=== PATIENT | female | born 1950 | race Caucasian/White ===

== ENCOUNTER 2025-01-22 09:41 | Outpatient (CLI) | payer MEDICARE ==
[~2025-01-22 09:41] MED LIST: iohexol 350MG/ML 100ml bottle IV ONE
[2025-01-22 10:35] LABS: BASOPHILS # (AUTO) 0.1 X10'3 (0-0.2); BASOPHILS % (AUTO) 1.2 % (0-1); EOSINOPHILS % (AUTO) 0.9 % (0-6); HEMATOCRIT 36.3 % (35.0-45.0); HEMOGLOBIN 12.4 g/dl (12.0-16.0); LYMPHOCYTES # (AUTO) 1.7 X10'3 (1.1-4.8); LYMPHOCYTES % (AUTO) 33.4 % (21-51); MEAN CORPUSCULAR HEMOGLOBIN 29.1 PG (27.0-31.0); MEAN CORPUSCULAR HGB CONC 34.2 g/dL (33.0-36.5); MEAN PLATELET VOLUME 8.6 FL (7.4-10.4); MONOCYTES # (AUTO) 0.3 X10'3 (0-0.9); MONOCYTES % (AUTO) 6.7 % (2-12); NEUTROPHILS # (AUTO) 2.9 X10'3 (1.8-7.7); NEUTROPHILS % (AUTO) 57.8 % (42-75); PLATELET COUNT 181 X10'3 (140-440); RED BLOOD COUNT 4.27 X10'6 (4.20-5.60); RED CELL DISTRIBUTION WIDTH 14.8 % (11.5-14.5)
[2025-01-22 10:47] LABS: APTT 32 SECONDS (22-32); INR 1.2 INR; PROTHROMBIN TIME 12.4 SECONDS (9.0-12.0)
[2025-01-22 11:07] LABS: ALANINE AMINOTRANSFERASE 96 U/L (12-78); ALBUMIN/GLOBULIN RATIO 1.3 (1.1-1.5); ALKALINE PHOSPHATASE 68 IU/L (46-116); ANION GAP 8 (8-16); ASPARTATE AMINO TRANSFERASE 77 U/L (10-37); BILIRUBIN,TOTAL 1.3 MG/DL (0.1-1.0); BLOOD UREA NITROGEN 15 MG/DL (7-18); BUN/CREATININE RATIO 18.3 (10.0-20.0); CALCIUM 9.1 MG/DL (8.5-10.1); CHLORIDE 97 MMOL/L (99-107); CREATININE 0.82 MG/DL (0.40-0.90); GLUCOSE 97 MG/DL (70-104); PRO BRAIN NATRIURETIC PEPTIDE 913 PG/ML (0-125); SODIUM 134 MMOL/L (135-145); TOTAL CARBON DIOXIDE 29.2 MMOL/L (24-32); TOTAL PROTEIN 7.2 G/DL (6.4-8.2); eGFR 68 ML/MIN
--- NOTE | 2025-01-22 12:18 | VASCULAR REPORT ---
PROCEDURE: [facility] 01/22/2025 11:09 AM INDICATION: Preoperative evaluation for TAVR. COMPARISON: None TECHNIQUE: Real-time grayscale and color Doppler images of the neck arteries were obtained with spect ral analysis performed. FINDINGS: RIGHT: No significant atherosclerotic plaque identified in the carotid. Normal spectral waveforms are seen. ICA peak systolic velocity: 81 cm/s ICA end-diastolic velocity: 31 cm/s ICA/CCA ratios: 1.37 LEFT: Mild calcified plaque formation noted at the bulb. Normal spectral waveforms are seen. ICA peak systolic velocity: 72 cm/s ICA end-diastolic velocity: 29 cm/s ICA/CCA ratios: 1.13 VERTEBRAL ARTERIES: Normal antegrade flow is seen bilaterally. Normal spectral waveforms. IMPRESSION: 1. No hemodynamically significant carotid artery stenosis identified bilaterally. Reference: Radiology 2003; [id number] Normal ICA PSV is <125 cm/sec and no plaque or intimal thickening is visible sonographically addition al criteria include ICA/CCA PSV ratio <2.0 and ICA EDV <40 cm/sec <50% ICA stenosis ICA PSV is <125 cm/sec and plaque or intimal thickening is visible sonographically additional criteria include ICA/CCA PSV ratio <2.0 and ICA EDV <40 cm/sec 50-69% ICA stenosis ICA PSV is 125-230 cm/sec and plaque is visible sonographically additional criter ia include ICA/CCA PSV ratio of 2.0-4.0 and ICA EDV of 40-100 cm/sec 70% ICA stenosis but less than near occlusion ICA PSV is >230 cm/sec and visible plaque and luminal narrowing are seen at dolan-scale and color Doppler ultrasound (the higher the Doppler parameters lie above the threshold of 230 cm/sec, the greater the likelihood of severe disease) additional criteria include ICA/CCA PSV ratio >4 and ICA EDV >100 cm/sec
--- NOTE | 2025-01-22 12:19 | RADIOLOGY REPORT ---
DI CHEST,TWO VIEWS CLINICAL HISTORY: TAVR SOB COMPARISON: None TECHNIQUE: Frontal and lateral view of the chest was obtained FINDINGS: Lines and Tubes: None Lungs: No focal consolidation. Pleura: No effusion. No pneumothorax. Cardiomediastinal contours: Unremarkable Bones: No acute osseous abnormality. IMPRESSION: No acute cardiopulmonary disease.
--- NOTE | 2025-01-23 11:14 | RADIOLOGY REPORT ---
Procedure: CT CTA TAVR Reason for study/Clinical History: Chest pain, evaluate for dissection. Comparison Study: None Exam Date: 01/22/2025 11:50 AM TECHNIQUE: Multiplanar reformatted images were generated from volumetric data acquired on a multidetector CT [facility]. Cardiac gating was utilized. Arterial phase images were obtained through the chest, abdomen and pelvis following intravenous administration of contrast material. 100 mL visipaque [address] dose reduction techniques were utilized. 3-D reconstructions were performed on an independent work station. Radiation Dose Information: CT Dose: CTDI volume is 65 mGy. Dose-length product is 2227 mGy*cm FINDINGS: Vascular: Aortic measurements: Aortic annulus: 28.0 x 21.2 mm Sinus of [place]: right cusp 28.5 mm, left cusp 30 mm, non-coronary cusp 29 mm Right coronary distance: 13.7 Left coronary distance: 16.8 ST junction 26.6 mm Ascending aorta 36 mm Aortic arch 24.2 mm Descending aorta 23.1 mm Aortic hiatus 20.6 mm Upper abdominal aorta 16.6 mm Minimal abdominal aorta 13.8 mm Right common iliac 9.01 mm, tortuosity index 1.35 Left common iliac 8.68 mm, tortuosity index 1.25 There is normal caliber of aorta. No aortic dissection. Aortic arch anatomy is conventional. There is conventional coronary artery anatomy. No exophytic calcified or soft plaque. Proximal splenic arter y aneurysm measuring up to 11 mm. No central pulmonary embolism. There is normal dimension of the main pulmonary artery. Heart is normal. There are no intracardiac filling defects. No pericardial effusion. Mediastinum: There is no significant intrathoracic or axillary lymphadenopathy by CT size criteria. Lungs: Subpleural reticulation, septal thickening, and ground-glass opacity with a basilar predominan ce. Pleura: No effusion or pneumothorax. Chest wall: No acute abnormality. Abdomen and Pelvis: Liver: Normal in appearance. Gallbladder: Normal in appearance. Spleen: Normal in appearance. Pancreas: Normal in appearance. Adrenals: Normal in appearance. Kidneys: Normal in appearance. Bowel: Moderate size sliding-type hiatal hernia. Peritoneum: No free air or free fluid. Lymph nodes: No lymphadenopathy by CT size criteria. Pelvic structures: No pelvic mass. Bones: Grade 1 anterolisthesis of L4 on L5. Multilevel degenerative disease. IMPRESSION: 1. TAVR planning with vascular measurements as described above. 2. 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 Interventional radiology evaluation is rec ommended. 3. Moderate size sliding-type hiatal hernia. HS:Y
== END 2025-01-22 23:59 | disposition home or self-care (01) ==
LOC: RAD 09:41
PROVIDERS: ATTEND Internal Medicine Cardiovascular Disease
DX: I65.22 Occlusion and stenosis of left carotid artery (principal); I72.8 Aneurysm of other specified arteries; R06.02 Shortness of breath; I35.0 Nonrheumatic aortic (valve) stenosis; K44.9 Diaphragmatic hernia without obstruction or gangrene; M43.16 Spondylolisthesis, lumbar region; M48.061 Spinal stenosis, lumbar region without neurogenic claudication
CPT/HCPCS: 36415; 71046; 71275; 74174; 75572; 80053; 83880; 85025; 85610; 85730; 93880; Q9967